=== PATIENT | female | born 1950 | race Caucasian/White ===

== ENCOUNTER 2021-09-09 08:00 | Outpatient (CLI) | payer OTHER ==
[~2021-09-09] VITALS: Ht 144.8 cm; Wt 68.0 kg
== END 2021-09-09 12:00 | disposition home or self-care (01) ==
LOC: SLB 08:00 → EDSTATUS 11:30 → SLB 12:00
PROVIDERS: ATTEND Dentist General Practice
DX: Z20.822 Contact with and (suspected) exposure to COVID-19 (principal)
CPT/HCPCS: 36415